=== PATIENT | female | born 1975 | race Caucasian/White ===

== ENCOUNTER 2019-10-05 08:09 | Outpatient (CLI) | payer OTHER ==
[~2019-10-05 08:09] MED LIST: NABUMETONE500 MG PO; PERCOCET 5/3251 TAB PO; SYNTHROID50 MCG PO
== END 2019-10-05 08:10 | disposition home or self-care (01) ==
LOC: SONOGRAMA 08:09
DX: E04.1 Nontoxic single thyroid nodule (principal)